=== PATIENT | female | born 1990 | race African-American/Black ===

== ENCOUNTER 2018-05-07 08:10 | Emergency (ER) | payer OTHER ==
[~2018-05-07] VITALS: Ht 172.7 cm; Wt 111.1 kg
[~2018-05-07 08:10] MED LIST: ACETAMINOPHEN-1 EAC1 PO; FLONASE 0.05%50 MCG NS; NOHOMEMEDICATIONS; PRENATAL; PRILOSEC 20 MG20 MG PO; ULTRAM 50MG TAB50 MG PO; ZPAK PO
[2018-05-07 08:57] LABS: HEMATOCRIT 39.2 % (37.0-47.0); HEMOGLOBIN 13.2 gm/dL (12.0-15.0); MCH 29.6 pg (26.0-34.0); MCHC 33.6 g/dL (28.0-37.0); MCV 87.9 fL (80.0-100.0); PLATELET COUNT 215 thou/uL (150-400); RBC 4.46 mil/uL (4.20-5.00); RDW 14.3 % (10.5-14.5); WBC 12.6 thou/uL (4.0-11.0)
[2018-05-07 08:58] LABS: URINE BLOOD 3+ (Negative); URINE CLARITY SL CLOUDY; URINE GLUCOSE-RANDOM* NEGATIVE (Negative); URINE KETONES 1+ (Negative); URINE NITRITE-REFLEX NEGATIVE (Negative); URINE PROTEIN (DIPSTICK) 2+ (Negative); URINE SPECIFIC GRAVITY 1.025 (1.005-1.035)
[2018-05-07 09:00] LABS: URINE LEUKOCYTES-REFLEX TRACE (Negative)
[2018-05-07 09:01] LABS: ICTOTEST (BILI CONFIRMATORY) Negative (Negative); URINE BILIRUBIN NEGATIVE (Negative); URINE COLOR DARK YELLOW
[2018-05-07 09:04] LABS: CALCIUM 9.7 mg/dL (8.5-10.1); CREATININE 1.3 mg/dL (0.6-1.0); POTASSIUM 3.2 mmol/L (3.5-5.1)
[2018-05-07 09:08] LABS: BACTERIA-REFLEX 1-9 Few /HPF (None Seen); CASTS None Seen /LPF (None Seen); CRYSTALS None Seen /LPF (None Seen); SQUAMOUS 0-3 Few /LPF (0-3); URINE RBC >20 Many /HPF (0-2); URINE WBC-REFLEX 0-5 Rare /HPF (0-5)
[2018-05-07 09:21] LABS: PLATELET ESTIMATE NORMAL
[2018-05-07] MEDS ORDERED: MEDROLDOSEPACK PO (12:03)
[2018-05-07] MEDS ORDERED: CLEOCIN HCL150 MG PO (12:03)
[2018-05-07] MEDS ORDERED: NORCO 5-325 TA1 EACH PO (12:03)
[2018-05-07 12:34] VITALS: BP 131/91
== END 2018-05-07 12:46 | disposition home or self-care (01) ==
LOC: ER 08:10
PROVIDERS: Emergency Medicine
DX: J03.90 Acute tonsillitis, unspecified (principal); E86.0 Dehydration; E87.6 Hypokalemia; N28.9 Disorder of kidney and ureter, unspecified; Z88.0 Allergy status to penicillin